=== PATIENT | male | born 1940 | race Caucasian/White ===

== ENCOUNTER 2021-10-10 13:45 | Inpatient (IN) | payer MEDICARE, OTHER ==
[~2021-10-10] VITALS: Ht 167.6 cm; Wt 55.1 kg
[~2021-10-10 13:45] MED LIST: FLOMAX 0.4 MG0.4 MG PO; IPRAT-ALBUT 0.5-3 ML INH; KLONOPIN TAB 00.5 MG PO; LIPITOR TAB 2020 MG PO; METFORMIN HCL500 MG PO; PRIMIDONE250 MG PO; SINEMET 25-1001 EACH PO; TYLENOL 120 MG120 MG PO
[2021-10-10 15:03] LABS: HEMOGLOBIN 15.6 gm/dl (14.0-17.5); RED BLOOD COUNT 4.94 M/UL (4.20-5.50); WHITE BLOOD COUNT 13.8 K/UL (4.5-11.0)
[2021-10-10 15:24] LABS: BUN/CREATININE RATIO 34 (0-10)
[2021-10-10] MEDS ORDERED: FERROUS SULFAT325 M2 PO (18:08)
[2021-10-10] MEDS ORDERED: PRILOSEC OTC20 MG PO (18:09)
[2021-10-11 03:13] LABS: HEMOGLOBIN 13.4 gm/dl (14.0-17.5); RED BLOOD COUNT 4.32 M/UL (4.20-5.50); WHITE BLOOD COUNT 9.2 K/UL (4.5-11.0)
[2021-10-11 03:54] LABS: BUN/CREATININE RATIO 37 (0-10)
[2021-10-12 06:36] LABS: HEMOGLOBIN 12.5 gm/dl (14.0-17.5); RED BLOOD COUNT 4.07 M/UL (4.20-5.50)
[2021-10-12 06:38] LABS: WHITE BLOOD COUNT 6.5 K/UL (4.5-11.0)
[2021-10-12 07:32] LABS: BUN/CREATININE RATIO 45 (0-10)
[2021-10-13 06:13] LABS: HEMOGLOBIN 12.1 gm/dl (14.0-17.5); RED BLOOD COUNT 3.93 M/UL (4.20-5.50); WHITE BLOOD COUNT 6.3 K/UL (4.5-11.0)
[2021-10-13 06:40] LABS: BUN/CREATININE RATIO 24 (0-10)
[2021-10-16 07:22] LABS: BUN/CREATININE RATIO 37 (0-10)
--- NOTE | 2021-10-16 18:20 | NUR ---
PATIENT AWOKE BLEEDING FROM IV. CANULA STILL IN PLACE, EXTENSION NOT ATTATCHED. SMALL AMOUNT OF BLOOD ON GOWN AND BLANKETS. PATIENT CALLED OUT FOR ASSISTANCE. PRESURE APPLIED TO CANULA WITH GLOVED HAND UNTIL SECOND NURSE PRIMED AND REPLACED NEW EXTENSION. IV REDRESSED AND FLOW PATENCEY CHECKED. NO PATENCY ISSUES. PATIENT CLEANED, NEW BRIEF, SHEET AND BLANKET APPLIED. WILL CONTINUE TO MONITOR.
[2021-10-18] MEDS ORDERED: VITAMIN D310 MC4 PO (11:04)
[2021-10-18] MEDS ORDERED: FLOMAX 0.4 MG0.4 MG PO (11:04)
[2021-10-18] MEDS ORDERED: ACETAMINOPHEN325 MG PO (11:04)
[2021-10-18] MEDS ORDERED: CILOXAN 0.3% O2.5 ML OS (11:17)
== END 2021-10-18 17:09 | DRG 56 ==
LOC: ER1 13:45 → PROG CARE 17:29 → CDU 17:29 → PROG CARE 10-11 00:12 → MED SURG 4 10-11 15:54
PROVIDERS: Internal Medicine; Preventive Medicine Occupational Medicine; ADMIT Internal Medicine
PROC: B24BZZZ Ultrasonography of Heart with Aorta (ICD-10-PCS; principal; 2021-10-12)
DX: G20 Parkinson's disease (principal); E43 Unspecified severe protein-calorie malnutrition; Z68.1 Body mass index [BMI] 19.9 or less, adult; F02.80 Dementia in other diseases classified elsewhere, unspecified severity, without behavioral disturbance, psychotic disturbance, mood disturbance, and anxiety; Z20.822 Contact with and (suspected) exposure to COVID-19; R26.89 Other abnormalities of gait and mobility; D64.9 Anemia, unspecified; E11.9 Type 2 diabetes mellitus without complications; E86.0 Dehydration; R53.81 Other malaise; R33.8 Other retention of urine; L89.322 Pressure ulcer of left buttock, stage 2; I25.5 Ischemic cardiomyopathy; L89.312 Pressure ulcer of right buttock, stage 2; R13.10 Dysphagia, unspecified; L89.152 Pressure ulcer of sacral region, stage 2; I25.2 Old myocardial infarction; Z87.442 Personal history of urinary calculi; Z98.890 Other specified postprocedural states; Z79.899 Other long term (current) drug therapy; Z79.4 Long term (current) use of insulin
CPT/HCPCS: ECHO; 0240U; 36415; 36600; 71045; 80048; 80053; 82550; 82553; 82607; 82803; 82962; 83605; 83690; 83735; 83880; 84439; 84443; 84484; 85025; 85652; 86140; 87040; 92526; 92610; 93005; 93306; 94664; 94760; 96361; 96372; 96374; 96375; 97110; 97162; 97167; 97530; 99285; A6212; G0378; J0696; J1650; J1940; J3475

== ENCOUNTER 2021-12-04 14:13 | Emergency (ER) | payer MEDICARE ==
[~2021-12-04 14:13] MED LIST changes: +ACETAMINOPHEN325 MG PO; +CILOXAN 0.3% O2.5 ML OS; +FERROUS SULFAT325 M2 PO; +PRILOSEC OTC20 MG PO; +VITAMIN D310 MC4 PO
[2021-12-04 15:15] LABS: HEMOGLOBIN 13.1 gm/dl (14.0-17.5); RED BLOOD COUNT 4.22 M/UL (4.20-5.50)
[2021-12-04 15:40] LABS: BUN/CREATININE RATIO 40 (0-10)
== END 2021-12-05 03:00 ==
LOC: ER1 14:13
PROVIDERS: Emergency Medicine
DX: S00.03XA Contusion of scalp, initial encounter (principal); R20.2 Paresthesia of skin; N17.9 Acute kidney failure, unspecified; E11.9 Type 2 diabetes mellitus without complications; G20 Parkinson's disease; X58.XXXA Exposure to other specified factors, initial encounter
CPT/HCPCS: 70450; 71045; 80053; 81001; 82550; 82553; 83605; 83735; 84100; 84484; 85025; 85610; 85730; 87040; 87086; 93005; 99285